=== PATIENT | male | born 1945 | race Caucasian/White ===

== ENCOUNTER → 2016-11-08 | Outpatient (CLI) | payer OTHER ==
[2016-11-08 14:54] LABS: HEMOGLOBIN A1C 6.14 % (4.2-6.0); MEAN BLOOD GLUCOSE (CALC) 118.462 mg/dL
[2016-11-08 14:55] LABS: ASPARTATE AMINO TRANSFERASE 28 IU/L (21-57); BLOOD UREA NITROGEN 18 mg/dL (7-22); CALCIUM 9.5 mg/dL (8.7-10.7); CHLORIDE 98 meq/L (98-112); CREATININE 0.9 mg/dL (0.70-1.50); EST GLOMERULAR FILTRATION > 60 (>60 ml/min/1.73m(2)); GLUCOSE 128 mg/dL (78-110); HDL CHOLESTEROL 37 mg/dL (40-150); POTASSIUM 4.2 meq/L (3.8-5.2); SODIUM 141 meq/L (135-145); TOTAL PROTEIN 7.2 g/dL (6.1-8.0); TRIGLYCERIDES 115 mg/dL (44-200)
== END ==
LOC: LAB 08:11
PROVIDERS: ATTEND Physician Assistant Medical
DX: E78.5 Hyperlipidemia, unspecified (principal); E11.9 Type 2 diabetes mellitus without complications
CPT/HCPCS: 80053; 80061; 83036